=== PATIENT | female | born 1985 | race Caucasian/White ===

== ENCOUNTER 2016-10-30 18:02 | Outpatient (CLI) | payer MEDICAID, OTHER ==
[~2016-10-30] VITALS: Ht 144.8 cm; Wt 58.3 kg
[2016-10-30 18:13] VITALS: BP 112/65; PULSE 65; RESP 18
[2016-10-30 18:19] VITALS: Ht 144.8 cm; Wt 58.3 kg
[2016-10-30] MEDS ORDERED: PREN-93 PO (18:20)
[2016-10-30 19:41] LABS: ALBUMIN/GLOBULIN RATIO 0.93; BILIRUBIN,INDIRECT 0.2 mg/dl (0-1.1); BILIRUBIN,TOTAL 0.2 mg/dl (0.2-1.3); CALCIUM 8.4 mg/dl (8.4-10.2); CREATININE 0.65 mg/dl (0.44-1.00); POTASSIUM 3.8 mmol/L (3.5-5.1); TOTAL PROTEIN 6.2 g/dl (6.1-8.1)
--- NOTE | 2016-10-30 19:47 | RADRPT ---
PROCEDURE: US OB biophysical profile. CLINICAL INDICATION: decreased movements, itching TECHNIQUE: Multiple sonographic images of the pelvis were obtained. The images were reviewed on a PACS workstation. COMPARISON: No prior studies are available for comparison. FINDINGS: There is a single viable intrauterine gestation. Cardiac activity is present with 144 beats per min [place]. There is a vertex presentation. The placenta is posterior. There is no evidence of placental abruption. There is a normal amount of amniotic fluid with an MACRINA = 14.8 cm. Biophysical profile: movement 2/2 tone 2/2. breathing 2/2 MACRINA 2/2 Total 09/12 RPTAT: AA . IMPRESSION: Normal biophysical profile. . .Aidan De La Cruz MD, Date Time Electronically viewed and signed by .Aidan De La Cruz MD, MD on 10/30/2016 19:47 .S/
--- NOTE | 2016-10-30 20:59 | HP ---
Date/Time of Note Date/Time of Note DATE: 10/30/16 TIME: 20:50 OB - History Hx of Present Free Text/Dictation 31 Year-old with SIUP at 36 2/7 weeks presents with a chief complaint of generalized itching. She has been receiving her care with Dr. Guevara. She states good movement. She denies nausea, vomiting, shortness of breath, chest pain, headache, visual changes, vaginal bleeding or LOF. Care: Good Care Ultrasounds: Normal mid trimester US Obstetrical Complications: None Medical Complications: None Past Family/Social History * Past Medical, Surgical, Family and Obstetric Histories reviewed from chart. OB Admission Exam Vital Signs Vital Signs Vital Signs Date Time Temp Pulse Resp B/P Pulse Ox O2 Delivery O2 Flow Rate FiO2 10/30/16 18:13 97.9 65 18 112/65 Room Air Physical Exam Heart: Rhythm Normal Lungs: Clear Abdomen: WNL Extremities: Normal Heart Rate: 140's Accelerations: Accelerations Present Decelerations: No Decelerations Varibility: Moderate Contractions on Admission: None Last 72 hours Lab Results CBC & BMP 10/30/16 19:12 Liver Function Test 10/30/16 19:12 Alanine Aminotransferase (ALT/SGPT) 28 Albumin 3.0 L Alkaline Phosphatase 210 H Aspartate Amino Transf (AST/SGOT) 25 Direct Bilirubin 0.00 Total Protein 6.2 OB Assessment/Plan Other plan: 31 Year-old with SIUP at 36 2/7 weeks with generalized itching. - FHR: No sign of metabolic acidosis- Category I - Continuous EFM, toco - Contractions: None. - CBC, CMP: nml, Bile acid is pending. - Reactive NST. BPP: 11/14. MACRINA: 14.8 - Symptoms and sign of labor, preeclampsia, kick count discussed with patient, she voiced understanding. All of her questions answered. - Patient was discharged home in stable condition with the appropriate discharge instructions provided. I would like patient to have close follow-up with her primary physician or outpatient clinic in 1-2 days or return to the ER for worsening symptoms or any other urgent concerns. MARBIN MERCEDES Oct 30, 2016 20:59
--- NOTE | 2016-10-30 21:09 | TRIAGE ---
OB Triage Datetime Report Generated by CPN: 10/30/2016 21:09 Datetime: 10/30/2016 20:17 Stage of : OB Triage Assessment Type: Triage Maternal Assessment Level of Consciousness: Fully Conscious Datetime: 10/30/2016 20:00 Labor Evaluation Frequency: x5 Monitor Mode: External Duration (sec)2399: 50-60 Quality: Mild Pattern: Normal: <= 5 Contractions in 10 Minutes Resting Tone [place]: Relaxed Heart Rate FHR Baseline Rate: 130 Monitor Mode: External US Accelerations: 15X15 Decelerations: None Category: Category I Pain Assessment Pain Presence: None/Denies Datetime: 10/30/2016 18:48 Labor Evaluation Frequency: OCCASIONAL Monitor Mode: External Duration (sec)2399: 60-120 Pattern: Normal: <= 5 Contractions in 10 Minutes Resting Tone [place]: Relaxed Heart Rate FHR Baseline Rate: 130 Monitor Mode: External US Variability: Moderate 6-25 bpm Accelerations: 10X10 Decelerations: None Category: Category I Pain Assessment Pain Presence: None/Denies Datetime: 10/30/2016 18:26 Assessment Type: Admission Assessment EGA: 36.2 Maternal Assessment Level of Consciousness: Fully Conscious DTR's/Clonus: DTRs 2+; No Clonus Headache: Denies Blurred Vision: No Respiratory Effort: Unlabored; Regular Rhythm; Equal Expansion Breath Sounds, Left: Clear and Equal Breath Sounds, Right: Clear and Equal Nausea/Vomiting: Denies RUQ Epigastric Pain: Denies Lower Extremities Edema: None Degree: None Upper Extremities Edema: None Degree: None Facial Edema: None Fall Risk Assessment History of Falling: (0) No Secondary Diagnosis: (0) No Ambulatory Aid: (0) Bedrest/Nurse Assist IV Therapy: (0) No Gait: (0) Normal/Bedrest/Immobile Mental Status: (0) Oriented to Own Ability Fall Score: 0 Fall Risk Score Definition: No Risk: No action required Datetime: 10/30/2016 18:23 Time of Arrival: 10/30/2016 17:56 Arrived By: Ambulatory Arrived From: Office Chief Complaint: ITCHING ALL OVER BODY X 2 DAYS, RX. FROM DR OFFICE TO EVALUATE Movement: Present Contractions: Denies/Absent Rupture of Membranes: Denies Vaginal Bleeding: None Vaginal Discharge: Denies Recent Sexual Intercouse: Denies Abdominal Trauma: Not Applicable Time Provider Notified: 10/30/2016 18:30 Provider Notified: EDIN Initial Plan: TOCO/ US. BILE ACID, CMP, BPP Datetime: 10/30/2016 18:14 Stage of : OB Triage Pain Assessment Pain Presence: None/Denies
== END 2016-10-30 20:33 | disposition home or self-care (01) ==
LOC: L-D 18:02 → OBT 18:02 → L-D 18:05 → OBT 20:33
PROVIDERS: ATTEND Obstetrics & Gynecology
DX: O26.893 Other specified pregnancy related conditions, third trimester (principal); Z3A.36 36 weeks gestation of pregnancy
CPT/HCPCS: 76818; 80053; 83789; Z7500; G0463